=== PATIENT | male | born 1940 | race Caucasian/White ===

== ENCOUNTER 2021-08-16 12:38 | Observation (INO) | payer MEDICARE ==
[~2021-08-16] VITALS: Ht 167.6 cm; Wt 92.1 kg
[2021-08-16] MEDS ORDERED: ASPIRIN 81 MG CHEW TAB PO STA (12:56)
[2021-08-16 13:11] LABS: BASOPHILS % 0.5 % (0.0-1.0); EOSINOPHILS # (AUTO) 0.2 (0.0-0.4); EOSINOPHILS % 3.3 % (0.0-6.0); HEMATOCRIT 43.1 % (38.2-49.6); HEMOGLOBIN 13.7 g/dL (14.0-18.0); LYMPHOCYTES % 17.4 % (18.0-39.1); MEAN CORPUSCULAR HEMOGLOBIN 30.4 pg (28-32); MEAN CORPUSCULAR HGB CONC 31.8 g/dL (31-35); MEAN CORPUSCULAR VOLUME 95.6 fL (81-99); MONOCYTES # (AUTO) 0.6 (0.2-0.8); MONOCYTES % 9.6 % (4.4-11.3); NEUTROPHILS # (AUTO) 3.9 (2.1-6.9); NEUTROPHILS % 68.8 % (38.7-80.0); PLATELET COUNT 233 x10e3/uL (140-360); RED BLOOD COUNT 4.51 x10e6/uL (4.3-5.7); RED CELL DISTRIBUTION WIDTH 12.3 % (11.7-14.4)
[2021-08-16 13:26] LABS: INR 0.96; PARTIAL THROMBOPLASTIN TIME 27.5 seconds (23.8-35.5); PROTHROMBIN TIME 13.7 seconds (11.9-14.5)
[2021-08-16 13:28] LABS: CLARITY,URINE SL CLOUDY (CLEAR); COLOR,URINE YELLOW (YELLOW); KETONES,URINE NEGATIVE (NEGATIVE); LEUKOCYTE ESTERASE ,URINE NEGATIVE (NEGATIVE); NITRITE,URINE NEGATIVE (NEGATIVE); PROTEIN,URINE DIPSTICK NEGATIVE (NEGATIVE); URINE UROBILINOGEN 0.2 mg/dL (0.2 - 1)
[2021-08-16 13:31] LABS: BACTERIA,URINE MODERATE /HPF; EPITHELIAL CELLS,URINE FEW /LPF; RBC,URINE >50 /HPF (0-5)
[2021-08-16 13:35] LABS: ALBUMIN 3.7 g/dL (3.5-5.0); ALBUMIN/GLOBULIN RATIO 1.3 (0.8-2.0); ANION GAP 15.6 mmol/L (8-16); CALCIUM 9.2 mg/dL (8.4-10.2); CREATININE, SERUM 0.87 mg/dL (0.72-1.25); POTASSIUM 3.6 mmol/L (3.5-5.1)
[2021-08-16 13:42] LABS: CREATINE KINASE MB 2.8 ng/mL (0-5.0)
[2021-08-16] MEDS ORDERED: Morphine 2mg Syringe 2 MG/ML SYR IV PRN (14:15)
[2021-08-16] MEDS ORDERED: SODIUM CHLORIDE FLUSH 10 ML SYR INJ PRN (14:15)
[2021-08-16] MEDS ORDERED: ONDANSETRON HCL INJ 2MG/ML 2ML 2 MG/ML VIAL IV PRN (14:15)
[2021-08-16] MEDS ORDERED: ASPIRIN 81 MG CHEW TAB PO ONE (14:15)
[2021-08-16 17:30] VITALS: BP 155/85
[2021-08-16] MEDS ORDERED: METOPROLOL TART50 MG PO (18:31)
[2021-08-16] MEDS ORDERED: VITAMIN B-121000 MCG PO (18:31)
[2021-08-16] MEDS ORDERED: METOPROLOL SUCC50 MG PO (18:38)
[2021-08-16 20:00] VITALS: BP 149/73
[2021-08-16 21:00] VITALS: BP 149/73
[2021-08-16 21:07] LABS: CREATINE KINASE MB 2.2 ng/mL (0-5.0)
[2021-08-17] VITALS (8 sets, daily range): BP systolic 141–158; BP diastolic 71–87
[2021-08-17 06:29] LABS: BASOPHILS % 0.5 % (0.0-1.0); EOSINOPHILS # (AUTO) 0.3 (0.0-0.4); EOSINOPHILS % 3.7 % (0.0-6.0); HEMOGLOBIN 14.5 g/dL (14.0-18.0); LYMPHOCYTES # (AUTO) 1.5 (1.0-3.2); LYMPHOCYTES % 19.6 % (18.0-39.1); MEAN CORPUSCULAR HEMOGLOBIN 30.2 pg (28-32); MEAN CORPUSCULAR HGB CONC 32.2 g/dL (31-35); MEAN CORPUSCULAR VOLUME 93.8 fL (81-99); MONOCYTES # (AUTO) 0.8 (0.2-0.8); MONOCYTES % 10.6 % (4.4-11.3); NEUTROPHILS % 65.2 % (38.7-80.0); PLATELET COUNT 239 x10e3/uL (140-360); RED CELL DISTRIBUTION WIDTH 12.1 % (11.7-14.4)
[2021-08-17 07:13] LABS: ANION GAP 16.6 mmol/L (8-16); CALCIUM 9.3 mg/dL (8.4-10.2); CREATININE, SERUM 0.81 mg/dL (0.72-1.25); POTASSIUM 3.6 mmol/L (3.5-5.1)
[2021-08-17 07:32] LABS: CREATINE KINASE MB 1.8 ng/mL (0-5.0)
[2021-08-17] MEDS: METOPROLOL SUCCINATE 50 MG TAB XL PO SCH (09:25)
[2021-08-17] MEDS: CYANOCOBALAMIN 1,000 MCG TAB PO SCH (09:25)
[2021-08-17] MEDS: ASPIRIN 325 MG TAB EC PO SCH (09:26)
[2021-08-17] MEDS: ENOXAPARIN SOD INJ 60 MG/0.6 ML SYR SC SCH ×2 (09:35→21:00)
[2021-08-17] MEDS ORDERED: ATORVASTATIN 40 MG TAB PO SCH (21:00)
[2021-08-18] VITALS (18 sets, daily range): BP systolic 115–159; BP diastolic 67–83
[2021-08-18 06:10] LABS: ANION GAP 12.9 mmol/L (8-16); CALCIUM 8.8 mg/dL (8.4-10.2); CREATININE, SERUM 0.83 mg/dL (0.72-1.25); POTASSIUM 3.9 mmol/L (3.5-5.1)
[2021-08-18] MEDS: ASPIRIN 325 MG TAB EC PO SCH (09:00)
[2021-08-18] MEDS: METOPROLOL SUCCINATE 50 MG TAB XL PO SCH (09:00)
[2021-08-18] MEDS: CYANOCOBALAMIN 1,000 MCG TAB PO SCH (09:00)
[2021-08-18] MEDS: ENOXAPARIN SOD INJ 60 MG/0.6 ML SYR SC SCH (09:00)
[2021-08-18] MEDS ORDERED: VERAPAMIL HCL 2.5 MG/ML 2 ML VIAL ONE (14:50)
[2021-08-18] MEDS ORDERED: MIDAZOLAM HCL 2 MG/2 ML VIAL ONE (14:51)
[2021-08-18] MEDS ORDERED: FENTANYL CITRATE/PF 100MCG/2 ML INJ ONE (14:51)
[2021-08-18] MEDS ORDERED: IOPAMIDOL 370 MG/ML 100 ML INFUS..BTL INJ ONE ×2 (14:51→15:13)
[2021-08-18] MEDS ORDERED: HEPARIN SOD/SOD CHLORIDE 2,000 ML ONE (14:51)
[2021-08-18] MEDS ORDERED: SODIUM CHLORIDE 0.9% 1000ML 1,000 ML ONE (14:58)
[2021-08-18] MEDS ORDERED: ASPIRIN 325 MG TAB ONE (15:29)
[2021-08-18] MEDS ORDERED: CLOPIDOGREL BISULFATE 75 MG TAB ONE (15:29)
[2021-08-19] MEDS ORDERED: CLOPIDOGREL BISULFATE 75 MG TAB PO SCH (09:00)
== END 2021-08-18 22:04 | disposition home or self-care (01) ==
LOC: ER 12:52 → ERHOLD 14:10 → MED/SURG 18:35 → MED/SURG2 23:48 → OBSVTOIN 08-18 16:26 → INTOOBSV 08-18 16:26
PROVIDERS: ADMIT Internal Medicine; ATTEND Internal Medicine
DX: I25.10 Atherosclerotic heart disease of native coronary artery without angina pectoris (principal); R53.1 Weakness; I11.9 Hypertensive heart disease without heart failure; E78.5 Hyperlipidemia, unspecified; I49.3 Ventricular premature depolarization; Z95.5 Presence of coronary angioplasty implant and graft; Z88.0 Allergy status to penicillin; Z20.822 Contact with and (suspected) exposure to COVID-19
CPT/HCPCS: 93458; C9600; 36415; 71045; 76937; 80048; 80053; 80061; 81001; 82550; 82553; 83880; 84484; 85025; 85610; 85730; 92920; 92928; 93005; 93306; 94799; 99152; 99153; 99284; C1725; C1769; C1874; C1887; G0378; J1650; J2250; J3010; J7030; Q9967